=== PATIENT | male | born 1935 | race Caucasian/White ===

== ENCOUNTER 2016-11-08 06:16 | Inpatient (IN) ==
[2016-11-03 14:49] LABS: Blood Urea Nitrogen 25 mg/dl (8-23)
[2016-11-03 14:53] LABS: Basophils # (Auto) 0 K/mcL (0.0-0.3); Basophils % (Auto) 0.2 % (0.0-2.0); Eosinophils # (Auto) 0 K/mcL (0.0-0.7); Eosinophils % (Auto) 1.2 % (0.0-7.0); Granulocytes % (Auto) 67.7 % (38.0-78.0); Lymphocytes # (Auto) 0.9 K/mcL (1.5-4.8); Lymphocytes % (Auto) 21.3 % (15.5-49.0); Mean Cell Volume 90.4 fL (80.0-100.0); Mean Corpuscular HGB Conc 33.8 g/dL (31.0-36.0); Mean Corpuscular Hemoglobin 30.5 pg (26.0-34.0); Monocytes # (Auto) 0.4 K/mcL (0.1-0.9); Monocytes % (Auto) 9.6 % (1.0-12.0); Platelet Count 144 K/mcL (140-440); Red Cell Distribution Width 13.5 % (11.5-14.5)
[2016-11-03 15:19] LABS: Appearance,Urine CLEAR; Bacteria,Urine 0 /hpf (0); Bilirubin,Urine NEG (NEG); Color,Urine YELLOW; Glucose,Urine (UA) NEGATIVE (NEG); Leukocyte Esterase,Urine NEG /uL (NEG); Mucus,Urine FEW /hpf (0); Nitrate,Urine NEG (NEG); Protein,Urine NEG (NEG); Specific Gravity,Urine 1.025 (1.000-1.035); Urine Blood 0.03 mg/dL (<0.03); Urine Hyaline Cast 1 /lpf (0-2); Urine RBC 6 /hpf (0-1); Urine Squamous Epithelial Cell 0 /hpf (0-4); Urine WBC 1 /hpf (0-4); Urobilinogen,Urine NEG (NEG)
[~2016-11-08 06:16] MED LIST: ACETAMINOPHEN 500 MG TABLET PO SCH; CELECOXIB 200 MG CAPSULE PO SCH; PREGABALIN 75 MG CAPSULE PO SCH; ceFAZolin 1 GM VIAL IV SCH; oxyCODONE 10 MG TAB.ER.12H PO SCH
[2016-11-08] MEDS ORDERED: GENTAMICIN SULFATE 800 MG/20 ML VIAL IR ONE (07:14)
[2016-11-08] MEDS ORDERED: MIDAZOLAM 5 MG/5 ML VIAL IV ONE (07:45)
[2016-11-08] MEDS ORDERED: TRANEXAMIC ACID 1,000 MG/10 ML VIAL IV ONE ×2 (07:45→09:23)
[2016-11-08] MEDS ORDERED: ONDANSETRON 4 MG/2 ML VIAL IV ONE (07:45)
[2016-11-08] MEDS ORDERED: LIDOCAINE HCL/PF 100 MG/5 ML SYRINGE IV ONE (07:45)
[2016-11-08] MEDS ORDERED: PROPOFOL 200 MG/20 ML VIAL IV ONE (07:45)
[2016-11-08] MEDS ORDERED: DEXAMETHASONE 10 MG/ML VIAL IV ONE (07:45)
[2016-11-08] MEDS ORDERED: PHENYLEPHRINE 10 MG/ML VIAL IV ONE (07:45)
[2016-11-08] MEDS ORDERED: ONDANSETRON 4 MG/2 ML VIAL IV PRN ×2 (08:12→09:23)
[2016-11-08] MEDS ORDERED: FLUMAZENIL 0.1 MG/ML ML IV PRN (08:12)
[2016-11-08] MEDS ORDERED: IPRATROPIUM/ALBUTEROL 3 ML AMPUL.NEB NEB PRN (08:12)
[2016-11-08] MEDS ORDERED: MEPERIDINE 25 MG/ML SYRINGE IV PRN (08:12)
[2016-11-08] MEDS ORDERED: LACTATED RINGERS 250 ML IV PRN (08:12)
[2016-11-08] MEDS ORDERED: NALOXONE HCL 0.4 MG/ML VIAL IV PRN (08:12)
[2016-11-08] MEDS ORDERED: fentaNYL 100 MCG/2 ML VIAL IV PRN (08:12)
[2016-11-08] MEDS ORDERED: PROMETHAZINE 25 MG/ML VIAL IV PRN (08:12)
[2016-11-08] MEDS ORDERED: BENZOCAINE/MENTHOL 1 LOZENGE PO PRN ×2 (08:12→09:23)
[2016-11-08] MEDS ORDERED: METHOCARBAMOL 1,000 MG/10 ML VIAL IV PRN (08:12)
[2016-11-08] MEDS ORDERED: diphenhydrAMINE 50 MG/ML VIAL IV PRN (08:12)
[2016-11-08] MEDS ORDERED: LACTATED RINGERS 1,000 ML IV SCH (08:15)
[2016-11-08] MEDS ORDERED: HYDROmorphone 2 MG/ML SYRINGE IV PRN (09:23)
[2016-11-08] MEDS ORDERED: POLYETHYLENE GLYCOL 3350 17 GM PACKET PO PRN (09:23)
[2016-11-08] MEDS ORDERED: MAGNESIUM HYDROXIDE 30 ML ORAL.SUSP PO PRN (09:23)
[2016-11-08] MEDS ORDERED: KETOROLAC 15 MG/ML VIAL IV PRN (09:23)
[2016-11-08] MEDS ORDERED: ACETAMINOPHEN 325 MG TABLET PO PRN (09:23)
[2016-11-08] MEDS ORDERED: BISACODYL 10 MG SUPP.RECT PR PRN (09:23)
[2016-11-08] MEDS ORDERED: FLEETS ADULT ENEMA PR PRN (09:23)
[2016-11-08] MEDS ORDERED: TEMAZEPAM 15 MG CAPSULE PO PRN (09:23)
--- NOTE | 2016-11-08 09:23 | Brief Operative Note ---
Date of procedure: 11/08/16 Pre-op diagnosis: right hip djd Post-op diagnosis: same Procedure: right hip djd Grafts/Implants: Yes Anesthesia: GETA Complications: none Surgeon: Niall Hughes Supervisor Benzene Refining: Afshin Larry Estimated blood loss (cc): 50 Specimens Removed/Pathology: none sent Condition: stable Disposition: PACU
--- NOTE | 2016-11-08 09:25 | XRay Report ---
CLINICAL INFORMATION: Postop right hip prostheses COMPARISON: None. FINDINGS: Only the prosthetic femoral head and neck are visualized which appear anatomically aligned. The femoral stem is not visualized. Severe degenerative changes noted in the left hip. IMPRESSION: Right total hip prostheses is suboptimally visualized but appears grossly normal Severe degeneration left hip Interpreted and Authenticated by: Roland Renee 11/08/16
--- NOTE | 2016-11-08 09:56 | XRay Report ---
CLINICAL INFORMATION: Post-op Total Hip COMPARISON: None. FINDINGS: Right shoulder prostheses is anatomically aligned. Severe degenerative changes noted in the left hip. Soft tissue swelling gas seen over the surgical site - as expected. IMPRESSION: Severe degenerative change left hip. Right total hip prostheses is anatomically aligned Interpreted and Authenticated by: Roland Renee 11/08/16
[2016-11-08] MEDS: 0.45 % SODIUM CHLORIDE 1,000 ML IV SCH ×3 (11:44→22:01)
--- NOTE | 2016-11-08 12:02 | Operative Note ---
DATE OF OPERATION: 11/08/2016 PREOPERATIVE DIAGNOSIS: Right hip severe degenerative arthritis. POSTOPERATIVE DIAGNOSIS: Right hip severe degenerative arthritis. PROCEDURE: Right total hip arthroplasty. SURGEON: Niall Hughes MD. ARCHITECTURAL TECHNOLOGIST: Afshin Larry PA-C. ANESTHESIA: General LMA anesthesia. COMPLICATIONS: None. IMPLANTS: Size 7 cementless stem with a 58 mm cementless cup with a dual mobility liner and neutral neck length. DESCRIPTION OF PROCEDURE: The patient was brought to the operating room and put to sleep with general LMA anesthesia. Once asleep, the patient had the right hip sterilely prepped and draped in the usual sterile fashion in the left lateral position. The right hip had initials and confirmed as the operative site both by x-ray, timeout, and initials on the skin. Once confirmed, we then sterilely prepped and draped the right extremity, making a superior posterior approach. Trying to stay out of the IT band, we exposed the joint and dislocated the hip. We released the capsule superior posteriorly. Piriformis and obturator internus were tagged and made our neck cut at 36 mm in total length. I then irrigated thoroughly and subluxed the hip anteriorly, released the anterior capsule and then reamed up to the size 57, implanted a 58 cementless cup, dual mobility liner with 20 degrees of anteversion and 40 degrees of inclination. I prepared the femur up to the size 7 component, trialed the size 7. X-rays were taken and confirmed leg length perfectly aligned. We then implanted a size 7 stem, neutral neck length, dual mobility ball and liner. The patient tolerated this well without complication. Blood loss about 50 mL. No complications. We closed the wound with #2 Ethibond, #1 Vicryl, 2-0 Vicryl and adhesive closure. The patient tolerated this well. [email or web address] Job ID: [id number] Doc ID: [id number] Niall Hughes MD
[2016-11-08] MEDS: HYDROcodone/APAP 10/325MG TABLET PO PRN ×3 (13:14→19:16)
[2016-11-08] MEDS: ceFAZolin 1 GM VIAL IV SCH ×2 (14:12→22:01)
[2016-11-08] MEDS: 0.9 % SODIUM CHLORIDE 10 ML SYRINGE IV SCH ×2 (14:14→20:46)
[2016-11-08] MEDS: DOCUSATE SODIUM 100 MG CAPSULE PO SCH (20:46)
[2016-11-08] MEDS: ASPIRIN 325 MG ENTERIC COATED TABLET PO SCH (20:46)
[2016-11-08] MEDS ORDERED: ATORVASTATIN 20 MG TABLET PO SCH (21:00)
[2016-11-08] MEDS ORDERED: DOCUSATE SODIUM 100 MG CAPSULE PO SCH (21:00)
[2016-11-08] MEDS ORDERED: ACETAMINOPHEN 500 MG TABLET PO SCH (21:00)
[2016-11-08] MEDS ORDERED: SENNOSIDES 1 TABLET PO SCH (21:00)
[2016-11-08] MEDS ORDERED: ASPIRIN 81 MG TAB.CHEW CHEWED SCH (21:00)
[2016-11-09] MEDS: HYDROcodone/APAP 10/325MG TABLET PO PRN ×3 (00:48→14:53)
[2016-11-09] MEDS: 0.9 % SODIUM CHLORIDE 10 ML SYRINGE IV SCH ×2 (06:09→14:22)
[2016-11-09] MEDS: 0.45 % SODIUM CHLORIDE 1,000 ML IV SCH (06:09)
[2016-11-09] MEDS: DOCUSATE SODIUM 100 MG CAPSULE PO SCH (08:57)
[2016-11-09] MEDS: ASPIRIN 325 MG ENTERIC COATED TABLET PO SCH (08:58)
--- NOTE | 2016-11-09 11:44 | Orthopedic Progress Note ---
Subjective Patient information: Note initiated : 11/09/16 at 11:43 am Service Date, if different from initiated Date: [] Patient: German Law 81 y/o M admitted on 11/08/16 for Right Total Hip Arthroplasty. Chief Complaint: [Pt is stable this morning on post operative day 1 without any significant concerns or complaints. Patients vital signs have remained stable. Patients dressing is dry and exhibits a grossly intact neurovascular and neuromotor exam. Patients 10 point ROS is otherwise negative. ] Objective Vital signs: Vital Signs Temp Pulse Pulse Resp BP Pulse Ox 11/09/16 09:00 95 11/09/16 08:00 97.5 F 64 16 122/74 95 11/09/16 07:19 93 11/09/16 07:18 62 12 93 11/09/16 04:37 94 11/09/16 04:00 97.5 F 61 20 117/67 93 11/09/16 03:00 93 11/09/16 00:22 94 11/08/16 23:35 97.5 F 61 18 124/68 92 11/08/16 23:00 92 11/08/16 21:00 93 11/08/16 20:00 97.8 F 61 20 125/68 93 11/08/16 19:40 93 11/08/16 19:00 92 11/08/16 17:00 96 11/08/16 15:00 96 11/08/16 13:08 156/80 93 11/08/16 13:00 96 Intake and Output 11/08/16 11/09/16 11/09/16 21:59 05:59 13:59 Intake Total 1200 / 1200 100 / 100 360 / 360 Output Total 645 / 645 275 / 275 Balance 555 / 555 -175 / -175 360 / 360 Intake: IV 1000 / 1000 Sodium Chloride 0.45% 1, 1000 / 1000 000 ml @ 100 mls/hr IV . Q10H KEITH Rx#:[id number] Oral 200 / 200 100 / 100 360 / 360 Output: Void Amount 645 / 645 275 / 275 Straight 520 / 520 Other: Meal Dinner Breakfast Percent of Meal Consumed 50% 75% # Voids 1 1 Weight 211 lb 8 oz Intake & Output: Intake & Output 11/08/16 11/09/16 11/09/16 21:59 05:59 13:59 Intake Total 1200 / 1200 100 / 100 360 / 360 Output Total 645 / 645 275 / 275 Balance 555 / 555 -175 / -175 360 / 360 Weight 211 lb 8 oz Intake: IV 1000 / 1000 Sodium Chloride 0.45% 1, 1000 / 1000 000 ml @ 100 mls/hr IV . Q10H KEITH Rx#:[id number] Oral 200 / 200 100 / 100 360 / 360 Output: Void Amount 645 / 645 275 / 275 Straight 520 / 520 Other: Meal Dinner Breakfast Percent of Meal Consumed 50% 75% # Voids 1 1 Incision: Yes healing Dressing: Yes dry Weight bearing status: full Neurological exam IM: Yes motor sensory intact, Yes neurovascular intact Extremities exam IM: Yes Foot pink and warm, Yes neurovascular intact - Labs CBC & BMP: 11/09/16 04:30 11/03/16 10:47 Labs: Orthopedic Labs 11/03/16 10:47 PT 14.4 INR 1.1 APTT 30 11/09/16 11/03/16 04:30 10:47 Hgb 15.0 Hct 37.1 L 44.3 Assessment and Plan (1) Hx of total hip arthroplasty Patient has been educated regarding wound care and dressings, follow up recommendations, and medication use. We will f/u with the patient within 2-3 weeks for wound check. Status: Acute
--- NOTE | 2016-11-09 11:47 | Discharge Summary ---
Ortho Discharge - KAREN - Patient Instructions Diet: Regular Diet Activity: activity as tolerated, weight bearing as tolerated Total Hip Protocol: Follow activity instructions as provided by Physical Therapy. Dressing Care: May shower in 2 days Patient Education: Total Hip Replacement (DC) Additional Instructions: Discharge Instructions: Do the exercises at home that physical therapy gave you. Take your prescription, photo ID, insurance cards, and current medication list with you to your first physical therapy appointment. Take your prescription to picker feeder any medication or equipment (such as walker, crutches, toilet riser or C.P.M.) Wear comfortable clothing for your physical therapy. Weight bearing as tolerated. You have Dermabond (a dressing with a mesh-like appearance), leave open to air. You may start showering on post op day #2. The Dermabond dressing can get wet, do not scrub dressing. Pat dry. To avoid constipation while taking any narcotic pain medication, take an over the counter stool softener/laxative. Use your Cryocuff or ice packs as directed, on for 20 minutes at a time throughout the day. This and elevation will help with pain and swelling. Call your physician for fevers above 100.5 or pain not controlled by medication. Your prescriptions are with your discharge information. Some medications were electronically transmitted to your pharmacy of choice. - Problem Maintenance (1) Hx of total hip arthroplasty Status: Acute - Follow Up Plan Follow Up Appointments: Niall Hughes MD [Physician] - 11/25/16 9:20 am Disposition: Home, Self-Care Prognosis: Good Rehab Potential: Good I certify that the patient requires SNF services: No Overall status at discharge: patient is progressing back to baseline - Orders For Discharge Prescriptions: Aspirin [Ecotrin] 325 mg PO BID #60 Docusate Sodium [Colace] 100 mg PO BID #60 capsule HYDROcodone/APAP 10/325MG [[place] 10/325Mg] 1 - 2 tab PO Q4HP PRN #75 tablet PRN Reason: Pain
== END 2016-11-09 15:15 | disposition home or self-care (01) | DRG 470 ==
LOC: MEDSUR 06:16
PROVIDERS: ADMIT Orthopaedic Surgery; ATTEND Orthopaedic Surgery